=== PATIENT | male | born 1965 | race Caucasian/White ===

== ENCOUNTER 2018-09-27 09:17 | Emergency (ER) | payer BC, OTHER ==
[~2018-09-27] VITALS: Ht 175.3 cm; Wt 69.0 kg
[2018-09-27 09:52] LABS: BASOPHILS 0.6 % (0.0-2.0); EOSINOPHILS 2.9 % (0.0-3.0); HEMATOCRIT 41.6 % (42.0-52.0); HEMOGLOBIN 14.8 gm/dL (14.0-18.0); LYMPHOCYTES 26.8 % (24.0-44.0); MCH 33.8 pg (26.0-34.0); MCHC 35.6 g/dL (28.0-37.0); MCV 94.8 fL (80.0-100.0); MONOCYTES 8.7 % (1.0-8.0); PLATELET COUNT 206 thou/uL (150-400); RBC 4.39 mil/uL (4.50-6.00); RDW 12.9 % (10.5-14.5); WBC 6.6 thou/uL (4.0-11.0)
[2018-09-27 09:56] LABS: CALCIUM 8.8 mg/dL (8.5-10.1); CREATININE 1.1 mg/dL (0.7-1.3); POTASSIUM 3.2 mmol/L (3.5-5.1)
[2018-09-27 10:02] LABS: ALBUMIN 3.6 g/dL (3.4-5.0); TOTAL BILIRUBIN 0.4 mg/dL (<0.1-1.0); TOTAL PROTEIN 7.2 g/dL (6.4-8.2)
[2018-09-27 11:04] LABS: URINE BILIRUBIN NEGATIVE (Negative); URINE BLOOD NEGATIVE (Negative); URINE CLARITY CLEAR; URINE COLOR YELLOW; URINE GLUCOSE-RANDOM* NEGATIVE (Negative); URINE KETONES NEGATIVE (Negative); URINE LEUKOCYTES NEGATIVE (Negative); URINE NITRITE NEGATIVE (Negative); URINE PROTEIN (DIPSTICK) NEGATIVE (Negative); URINE UROBILINOGEN 0.2 E.U./dl (0.2-1.0)
[2018-09-27] MEDS ORDERED: LOPRESSOR50 PO (11:06)
[2018-09-27] MEDS ORDERED: HYDROCHLOROTHIA25 M2 PO (11:06)
[2018-09-27] MEDS ORDERED: BENICAR20 MG PO (11:06)
[2018-09-27 11:54] VITALS: BP 110/70
--- NOTE | 2018-09-28 08:33 | EKG ---
[place] [address] [facility] [address] ELECTROCARDIOGRAM REPORT Name: SHELIA SCHREIBER Room #: DENVER SPRINGSTravisTravis#: [id number] ������������������ Admission: 09/27/18 ������������������ Attend Phys: Discharge: 09/27/18 ������������������ Date of : 63 Report #: [id number] ����������������������������������������������������������������� [id number] THIS REPORT FOR: //name// 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: : 1965 Requested By: Mirlande Alaniz Order Number: [id number] MD: Brody Gottlieb Measurements Intervals [place] Rate: 76 P: 49 PA: 142 QRS: 42 QRSD: 107 T: 30 QT: 395 QTc: 445 Interpretive Statements Sinus rhythm Normal tracing No previous ECG available for comparison Electronically Signed On 09-28-2018 8:32:52 CDT by Brody Gottlieb [email or web address] ��������������������������������������������� <ELECTRONICALLY SIGNED> ���������������������������������������� By: Brody Gottlieb MD, [facility] ��������������������������������������������� 09/28/18 0832 [id number] [id number] Brody Gottlieb MD, FACC /EPI
== END 2018-09-27 11:55 | disposition left against medical advice (07) ==
LOC: ER 09:17
PROVIDERS: Emergency Medicine
DX: R55 Syncope and collapse (principal); S40.811A Abrasion of right upper arm, initial encounter; I10 Essential (primary) hypertension; E87.1 Hypo-osmolality and hyponatremia; Z79.899 Other long term (current) drug therapy; W19.XXXA Unspecified fall, initial encounter; Y93.89 Activity, other specified; Y92.69 Other specified industrial and construction area as the place of occurrence of the external cause; Y99.9 Unspecified external cause status